=== PATIENT | female | born 1945 | race Caucasian/White ===

== ENCOUNTER 2020-02-08 14:03 | Outpatient (CLI) | payer MEDICARE ==
--- NOTE | 2020-02-08 17:12 | RAD ---
TWO VIEWS LEFT HIP: Comparison: None History: Left hip pain since June. FINDINGS: Two views of the left hip shows severe joint space narrowing and osteophyte formation in the hip join t. Subchondral cystic change is seen. There is no evidence of acute fracture or dislocation. IMPRESSION: Severe left hip osteoarthritis without acute osseous abnormality. POS: [facility]
== END 2020-02-08 14:04 | disposition home or self-care (01) ==
LOC: MADRAD 14:03
PROVIDERS: ATTEND Orthopaedic Surgery
DX: M25.552 Pain in left hip (principal); M16.12 Unilateral primary osteoarthritis, left hip

== ENCOUNTER 2021-09-08 08:02 | Emergency (ER) | payer MEDICARE | END 2021-09-08 09:13 | disposition home or self-care (01) | LOC: MADERS 08:02 | DX: S60.212A Contusion of left wrist, initial encounter (principal); E11.9 Type 2 diabetes mellitus without complications; K21.9 Gastro-esophageal reflux disease without esophagitis; E78.5 Hyperlipidemia, unspecified; I10 Essential (primary) hypertension; Z79.899 Other long term (current) drug therapy; Z79.84 Long term (current) use of oral hypoglycemic drugs; Z79.82 Long term (current) use of aspirin; W22.8XXA Striking against or struck by other objects, initial encounter ==